=== PATIENT | male | born 1975 | race Caucasian/White ===

== ENCOUNTER 2016-12-02 10:51 | Emergency (ER) | payer OTHER ==
--- NOTE | 2016-12-02 12:37 | DIAGNOSTIC IMAGING REPORT ---
PROCEDURE: XR SINUSES LESS THAN 3 VIEWS INDICATION: History of metal BB from previous injury. Recent injury. TECHNIQUE: Single pizano view. COMPARISON: None. FINDINGS: There is a 4 mm metal BB overlying the upper inner quadrant of the right orbit. The rest of the orbits are normal. Paranasal sinuses are clear. IMPRESSION: 1. There is a 4 mm metal BB overlying the upper inner right orbit (reportedly from old injury). 2. Otherwise negative Pizano view of the orbits. 3. Findings discussed with Dr. Catarino Cox.
--- NOTE | 2016-12-02 13:08 | DIAGNOSTIC IMAGING REPORT ---
PROCEDURE: CT SINUS/FACIAL BONES W/CONT CLINICAL INDICATION: ORBITAL PAIN TECHNIQUE: 125 ml of Isovue 300 injected intravenously and axial images were obtained through the face with coronal reformations. COMPARISON: None. FINDINGS: 6 mm subcutaneous metallic BB anteromedial aspect of the left orbit (apparently injury from 25 years ago). There is minor right periorbital soft tissue swelling but no evidence of an abscess. The globes and postseptal orbits are unremarkable. Minor right maxillary sinus mucosal thickening. No fracture. Left TMJ osteoarthritic changes. IMPRESSION: 1. Mild periorbital soft tissue swelling but no evidence of an abscess 2. 6 mm subcutaneous fat BB in the anteromedial aspect of the preseptal left orbit. No evidence of an additional foreign body. 3. Results discussed with Dr. Cox All CT scans at this facility use dose modulation, iterative reconstruction, and/or weight-based dosing when appropriate to reduce radiation dose to as low as reasonably achievable.
--- NOTE | 2016-12-02 13:33 | ED CLINICAL REPORT ---
Clinical Report - Physicians/Mid Levels Formerly [facility] [address] [place] [address] 12/02/2016 10:54 Patient: MOIZ HOGAN Time Seen: 11:30 Dec 02 2016. Arrived- By private vehicle. Historian- patient. CPT: ER phys charges level 4 (#[id number]). HISTORY OF PRESENT ILLNESS Chief Complaint: EYE REDNESS. This started about 1 weeks [employer] SAL[employer], involves the right eye and is characterized as moderate in severity. Onset. (1 week). ( Pt states he had FB in rt eye last . went to clinic Sat and started on eye drops. states eye is not better and is worse. wonders if he still has FB present. The patient has foreign material in the eye. Eye pain, discomfort and discharge. Moderate right eyelid swelling. No decreased vision. REVIEW OF SYSTEMS No fever, sore throat or cough. All systems otherwise negative, except as recorded above. PAST HISTORY : ( rt eye surg, retina re-attached, lens replaced). SOCIAL HISTORY Heavy tobacco smoker (cigarette)- 1 pack per day. Regular alcohol use. History of drug use: marijuana. ADDITIONAL NOTES The nursing notes have been reviewed. PHYSICAL EXAM Vital Signs: 12/02/2016 11:00 BP: 172/100. HR: 93. RR: 18. O2 saturation: 100%. Temp: 98.2 F. Pain level now: 5/10. Appearance: Alert. HEENT: Ears normal. Nose normal. Pharynx normal. Eyes: Visual acuity noted- see nurse's notes. Right cornea examined with fluorescein stain. Pupils equal, round and reactive to light. Accommodation normal. Periorbital areas appear normal to inspection. Anterior chambers clear. Anterior chambers of normal depth. Rt Eye: Eyelid erythema. Moderate conjunctival edema. Injected conjunctiva. Slight exudate present. Other corneal abnormality (Abnormality seen at 7 o'clock. Unclear if it is an old or new injury. There is cobblestone appearance to the lower corcnea.). No fluorescein dye uptake. Skin: No rash. Neuro: Oriented X 3. LABS, X-RAYS, AND EKG Note - Tests: (CT facial bones : pre-septal edema. No FB.). PROGRESS AND PROCEDURES Course of Care: There is tenderness when sweeping the conjunctiva with swab. The tenderness appears to be in the area of the medial canthus. Do not see any FB on exam and CT does not reveal any FB. Pt will see ophthamology today to evaluate eye condition. Discussed case with on-call health care provider, (Kalyan Crocker). Reviewed test results. Agreed upon treatment plan. Health care provider will see patient in office. Patient/family counseled. Disposition: Transferred. Ophthamology office. Discharged. Condition: stable and unchanged. CLINICAL IMPRESSION Acute orbital cellulitis right eye. FB right eye Corneal injury vs old injury right eye. INSTRUCTIONS Warnings: Further evaluation is necessary. Your Current Medications: CONTINUE TAKING THE FOLLOWING MEDICATIONS: Ibuprofen Oral : 400 mg PRN. None*. Tobramycin Ophthalmic : Solution 0.3 %, 2 drops QID. Prescription Medications: Augmentin 875 mg: take 1 tablet orally every 12 hours for 7 days. Dispense fourteen (14). No refills. Substitution is permissible. Understanding of the discharge instructions verbalized by patient. Follow-up with: Kalyan Al MD, Ophthalmology, , [facility], [address] [place] [address] Follow up today. Reason for referral: eye injury. (Electronically signed by Catarino Cox MD 12/03/2016 8:44)
--- NOTE | 2016-12-02 13:33 | ED CLINICAL REPORT ---
Clinical Report - Physicians/Mid Levels [facility] [address] [place] [address] 12/02/2016 10:54 Patient: MOIZ HOGAN Time Seen: 11:30 Dec 02 2016. Arrived- By private vehicle. Historian- patient. CPT: ER phys charges level 4 (#[id number]). HISTORY OF PRESENT ILLNESS Chief Complaint: EYE REDNESS. 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 Onset. (1 week). ( Pt states he had FB in rt eye last . went to clinic Sat and started on eye drops. states eye is not better and is worse. wonders if he still has FB present. The patient has foreign material in the eye. Eye pain, discomfort and discharge. Moderate right eyelid swelling. No decreased vision. REVIEW OF SYSTEMS No fever, sore throat or cough. All systems otherwise negative, except as recorded above. PAST HISTORY : ( rt eye surg, retina re-attached, lens replaced). SOCIAL HISTORY Heavy tobacco smoker (cigarette)- 1 pack per day. Regular alcohol use. History of drug use: marijuana. ADDITIONAL NOTES The nursing notes have been reviewed. PHYSICAL EXAM Vital Signs: 12/02/2016 11:00 BP: 172/100. HR: 93. RR: 18. O2 saturation: 100%. Temp: 98.2 F. Pain level now: 5/10. Appearance: Alert. HEENT: Ears normal. Nose normal. Pharynx normal. Eyes: Visual acuity noted- see nurse's notes. Right cornea examined with fluorescein stain. Pupils equal, round and reactive to light. Accommodation normal. Periorbital areas appear normal to inspection. Anterior chambers clear. Anterior chambers of normal depth. Rt Eye: Eyelid erythema. Moderate conjunctival edema. Injected conjunctiva. Slight exudate present. Other corneal abnormality (Abnormality seen at 7 o'clock. Unclear if it is an old or new injury. There is cobblestone appearance to the lower corcnea.). No fluorescein dye uptake. Skin: No rash. Neuro: Oriented X 3. LABS, X-RAYS, AND EKG Note - Tests: (CT facial bones : pre-septal edema. No FB.). PROGRESS AND PROCEDURES Course of Care: There is tenderness when sweeping the conjunctiva with swab. The tenderness appears to be in the area of the medial canthus. Do not see any FB on exam and CT does not reveal any FB. Pt will see ophthamology today to evaluate eye condition. Discussed case with on-call health care provider, (Kalyan Crocker). Reviewed test results. Agreed upon treatment plan. Health care provider will see patient in office. Patient/family counseled. Disposition: Transferred. Ophthamology office. Discharged. Condition: stable and unchanged. CLINICAL IMPRESSION Acute orbital cellulitis right eye. FB right eye Corneal injury vs old injury right eye. INSTRUCTIONS Warnings: Further evaluation is necessary. Your Current Medications: CONTINUE TAKING THE FOLLOWING MEDICATIONS: Ibuprofen Oral : 400 mg PRN. None*. Tobramycin Ophthalmic : Solution 0.3 %, 2 drops QID. Prescription Medications: Augmentin 875 mg: take 1 tablet orally every 12 hours for 7 days. Dispense fourteen (14). No refills. Substitution is permissible. Understanding of the discharge instructions verbalized by patient. Follow-up with: Kalyan Al MD, Ophthalmology, , [facility], [address] [place] [address] Follow up today. Reason for referral: eye injury. (Electronically signed by Catarino Cox MD 12/03/2016 8:44)
--- NOTE | 2016-12-02 13:33 | ED NURSING NOTES ---
Clinical Report - Nurses [facility] [address] [place] [address] 12/02/2016 10:54 Patient: MOIZ HOGAN TRIAGE Triage time 1100. Acuity: LEVEL 4. Chief Complaint: REDNESS, PAIN and VISION PROBLEM TO RIGHT EYE. 11:00. --11:08 Kiersten Jeter R.N. 11:00 12/02/16. BP: 172/100. HR: 93. RR: 18. O2 saturation: 100%. Temp: 98.2 F. Pain level now: 10/13. --11:08 Kiersten Jeter R.N. VISUAL ACUITY: Visual acuity performed without corrective lenses: left eye 20/30 minus two letters; right eye 20/70. Patient normally wears corrective lenses. --11:16 Kiersten Jeter R.N. Weight: 93.8 kg stated. Height/Length: 73 inches Per Patient. BMI: 27.3. --11:03 Kiersten Jeter R.N. Medications None. Tobramycin Ophthalmic (Solution 0.3 %) 2 drops, QID. --11:06 Kiersten Jeter R.N. Ibuprofen Oral 400 mg, PRN. --11:06 Kiersten Jeter R.N. Allergies No Known Drug Allergy. --11:05 Kiersten Jeter R.N. History Arrived by private vehicle. Historian: patient. Accompanied by spouse. Primary physician (macrina parrish [facility]). Onset. (1 week). ( Pt states he had FB in rt eye last . went to clinic Sat and started on eye drops. states eyeis not better and is worse. wonders if he still has FB present. Also states he can't hear out of rt ear now). He has had eye discomfort, eye irritation, photophobia and blurred vision. ( also having problems with urination). PAST MEDICAL HX: Negative. SURGERY HX: ( rt eye surg, retina re-attached, lens replaced). SOCIAL HX: Heavy tobacco smoker (cigarette)- 1 pack per day. Occasional alcohol use. History of occasional drug use: marijuana. --11:08 Kiersten Jeter R.N. Interventions ID band on patient. To treatment room. --11:08 Kiersten Jeter R.N. PHYSICAL ASSESSMENT 11:00. Ambulatory to room. GENERAL / NEURO / PSYCH: Alert. Appears anxious. HEENT: Photophobia present. ( redness and local soft tissue swelling noted). RESPIRATORY: Respirations not labored. CVS: Capillary refill less than 2 seconds. SKIN: Skin is warm and dry. --11:10 Kiersten Jeter R.N. NURSING PROGRESS NOTES 11:00. Patient gowned. Head of bed elevated. Reassurance given. Patient identifiers checked. Call light placed in reach. Side rails up. Bed placed in lowest position. Patient ready for evaluation- chart flagged. --11:09 Kiersten Jeter R.N. 11:12 12/02/2016 Alcaine (Proparacaine HCl) Eye Drops Opthalmic solution 2 drop given. Given in the right eye. (for [facility] test). --11:17 Kiersten Jeter R.N. 12:41 12/02/2016 Site #1 started via IV in the right antecubital space with an 20g angiocath, with aseptic technique and good blood return; one attempt. Saline lock flushed with 10 mL saline (Inserted by [facility] for procedure). --12:51 Tg Mayes R.N. late entry -11:45. FB REMOVAL - EYE: Removal of foreign body to the eye performed by ED physician. Preparation: eye tray, slit lamp and fluorescein at bedside. Procedure. (attempted with jordyn). --13:02 Kiersten Jeter R.N. 12:30. Patient transported to CT by wheelchair with tech. --12:56 Kiersten Jeter R.N. 12:50. Patient returned from CT by wheelchair with tech. --12:57 Kiersten Jeter R.N. 13:00 12/02/16. BP: 154/92. HR: 86. RR: 18. O2 saturation: 100%. Temp: deferred. Pain level now: 2/10. Additional comments: given po fluids, wating for CT results . --13:03 Kiersten Jeter R.N. 11:30 12/02/2016 FUL-JR Opth soln Opthalmic solution 1 Strip given. Given in the right eye. (used by JENNIFER). --13:03 Kiersten Jeter R.N. 13:35 12/02/2016 Site #[address] place (IV site left intact per ERMD, and pt to go immediately to [facility]). --18:49 Kiersten Jeter R.N. 18:51 12/02/2016 IV Saline Lock Drip IV Continued: upon transfer at the rate of 0 mL/hr. 0 mL remaining (left in place per ERMD, pt to go immediatly to [facility]). --18:51 Kiersten Jeter R.N. DISPOSITION / DISCHARGE 13:35. Condition at departure: stable. No learning barriers present. Discharge instructions provided and reviewed with the patient. Patient verbalized understanding. Written instructions provided in Indonesian. The patient was discharged (go directly to [facility]). He left the Emergency Department ambulatory and via private vehicle. --18:48 Kiersten Jeter R.N. 13:35 12/02/16. BP: 149/93. HR: 86. RR: 14. O2 saturation: 99%. Temp: deferred. Pain level now: 3/10. --18:48 Kiersten Jeter R.N. Locked/Released at 12/02/2016 18:52 by Kiersten Jeter R.N.
--- NOTE | 2016-12-02 13:33 | ED ORDER SUMMARY ---
..... Patient: MOIZ HOGAN OrderSheet [facility] VisitID: [id number] [place] [address] 41y, M Registration Date/Time: 12/02/2016 ORDER SHEET Weight: 93.8 kg (stated) Allergies: No Known Drug Allergy GENERAL ORDERS: Orbits Urgent (11:45 12/02/2016 Clint RENDON) (Ack 11:48 KHoerner) (Cancelled: Other11:52 Clint RENDON) Sinuses less than 3V (caban) Urgent (11:52 12/02/2016 Clint RENDON) (Ack 11:53 KHoerner) (12:40 KHoerner) CT Sinus/Facial Bones w Cont Urgent (12:17 12/02/2016 Clint RENDON) (Ack 12:20 KHoerner) (12:40 KHoerner) MEDICATION ORDERS: Ful-Olga Eye Strips 1 strips (NOW) (11:16 12/02/2016 DDean R.N. per protocol) (Ack 11:17 DDean R.N.) (13:03 DDean R.N.) Alcaine Eye Drops (Solution 0.5 %) 2 drops (NOW, right eye) (11:16 12/02/2016 DDean R.N. per protocol) (11:17 DDean R.N.) IV FLUIDS: IV Saline Lock (12:50 12/02/2016 TJayne R.N. per protocol) (12:51 TJayne R.N.) ORDER SHEET NOTES: [Electronically signed by Kiersten Jeter R.N. (18:52 12/02/2016)] [Electronically signed by Catarino Cox MD (08:44 12/03/2016)] [Electronically locked/signed by Kiersten Jeter R.N. (18:52 12/02/2016)]
--- NOTE | 2016-12-02 13:33 | ED ORDER SUMMARY ---
..... Patient: MOIZ HOGAN OrderSheet [facility] VisitID: [id number] [place] [address] 41y, M Registration Date/Time: 12/02/2016 ORDER SHEET Weight: 93.8 kg (stated) Allergies: No Known Drug Allergy GENERAL ORDERS: Orbits Urgent (11:45 12/02/2016 Clint RENDON) (Ack 11:48 KHoerner) (Cancelled: Other11:52 Clint RENDON) Sinuses less than 3V (caban) Urgent (11:52 12/02/2016 Clint RENDON) (Ack 11:53 KHoerner) (12:40 KHoerner) CT Sinus/Facial Bones w Cont Urgent (12:17 12/02/2016 Clint RENDON) (Ack 12:20 KHoerner) (12:40 KHoerner) MEDICATION ORDERS: Ful-Olga Eye Strips 1 strips (NOW) (11:16 12/02/2016 DDean R.N. per protocol) (Ack 11:17 DDean R.N.) (13:03 DDean R.N.) Alcaine Eye Drops (Solution 0.5 %) 2 drops (NOW, right eye) (11:16 12/02/2016 DDean R.N. per protocol) (11:17 DDean R.N.) IV FLUIDS: IV Saline Lock (12:50 12/02/2016 TJayne R.N. per protocol) (12:51 TJayne R.N.) ORDER SHEET NOTES: [Electronically signed by Kiersten Jeter R.N. (18:52 12/02/2016)] [Electronically signed by Catarino Cox MD (08:44 12/03/2016)] [Electronically locked/signed by Kiersten Jeter R.N. (18:52 12/02/2016)]
--- NOTE | 2016-12-02 13:33 | ED NURSING NOTES ---
Clinical Report - Nurses [facility] [address] [place] [address] 12/02/2016 10:54 Patient: MOIZ HOGAN TRIAGE Triage time 1100. Acuity: LEVEL 4. Chief Complaint: REDNESS, PAIN and VISION PROBLEM TO RIGHT EYE. 11:00. --11:08 Kiersten Jeter R.N. 11:00 12/02/16. BP: 172/100. HR: 93. RR: 18. O2 saturation: 100%. Temp: 98.2 F. Pain level now: 10/13. --11:08 Kiersten Jeter R.N. VISUAL ACUITY: Visual acuity performed without corrective lenses: left eye 20/30 minus two letters; right eye 20/70. Patient normally wears corrective lenses. --11:16 Kiersten Jeter R.N. Weight: 93.8 kg stated. Height/Length: 73 inches Per Patient. BMI: 27.3. --11:03 Kiersten Jeter R.N. Medications None. Tobramycin Ophthalmic (Solution 0.3 %) 2 drops, QID. --11:06 Kiersten Jeter R.N. Ibuprofen Oral 400 mg, PRN. --11:06 Kiersten Jeter R.N. Allergies No Known Drug Allergy. --11:05 Kiersten Jeter R.N. History Arrived by private vehicle. Historian: patient. Accompanied by spouse. Primary physician (macrina parrish [facility]). Onset. (1 week). ( Pt states he had FB in rt eye last . went to clinic Sat and started on eye drops. states eyeis not better and is worse. wonders if he still has FB present. Also states he can't hear out of rt ear now). He has had eye discomfort, eye irritation, photophobia and blurred vision. ( also having problems with urination). PAST MEDICAL HX: Negative. SURGERY HX: ( rt eye surg, retina re-attached, lens replaced). SOCIAL HX: Heavy tobacco smoker (cigarette)- 1 pack per day. Occasional alcohol use. History of occasional drug use: marijuana. --11:08 Kiersten Jeter R.N. Interventions ID band on patient. To treatment room. --11:08 Kiersten Jeter R.N. PHYSICAL ASSESSMENT 11:00. Ambulatory to room. GENERAL / NEURO / PSYCH: Alert. Appears anxious. HEENT: Photophobia present. ( redness and local soft tissue swelling noted). RESPIRATORY: Respirations not labored. CVS: Capillary refill less than 2 seconds. SKIN: Skin is warm and dry. --11:10 Kiersten Jeter R.N. NURSING PROGRESS NOTES 11:00. Patient gowned. Head of bed elevated. Reassurance given. Patient identifiers checked. Call light placed in reach. Side rails up. Bed placed in lowest position. Patient ready for evaluation- chart flagged. --11:09 Kiersten Jeter R.N. 11:12 12/02/2016 Alcaine (Proparacaine HCl) Eye Drops Opthalmic solution 2 drop given. Given in the right eye. (for [facility] test). --11:17 Kiersten Jeter R.N. 12:41 12/02/2016 Site #1 started via IV in the right antecubital space with an 20g angiocath, with aseptic technique and good blood return; one attempt. Saline lock flushed with 10 mL saline (Inserted by [facility] for procedure). --12:51 Tg Mayes R.N. late entry -11:45. FB REMOVAL - EYE: Removal of foreign body to the eye performed by ED physician. Preparation: eye tray, slit lamp and fluorescein at bedside. Procedure. (attempted with jordyn). --13:02 Kiersten Jeter R.N. 12:30. Patient transported to CT by wheelchair with tech. --12:56 Kiersten Jeter R.N. 12:50. Patient returned from CT by wheelchair with tech. --12:57 Kiersten Jeter R.N. 13:00 12/02/16. BP: 154/92. HR: 86. RR: 18. O2 saturation: 100%. Temp: deferred. Pain level now: 2/10. Additional comments: given po fluids, wating for CT results . --13:03 Kiersten Jeter R.N. 11:30 12/02/2016 FUL-JR Opth soln Opthalmic solution 1 Strip given. Given in the right eye. (used by JENNIFER). --13:03 Kiersten Jeter R.N. 13:35 12/02/2016 Site #[address] place (IV site left intact per ERMD, and pt to go immediately to [facility]). --18:49 Kiersten Jeter R.N. 18:51 12/02/2016 IV Saline Lock Drip IV Continued: upon transfer at the rate of 0 mL/hr. 0 mL remaining (left in place per ERMD, pt to go immediat[facility] to [facility]). --18:51 Kiersten Jeter R.N. DISPOSITION / DISCHARGE 13:35. Condition at departure: stable. No learning barriers present. Discharge instructions provided and reviewed with the patient. Patient verbalized understanding. Written instructions provided in Maltese. The patient was discharged (go directly to [facility] He left the Emergency Department ambulatory and via private vehicle. --18:48 Kiersten Jeter R.N. 13:35 12/02/16. BP: 149/93. HR: 86. RR: 14. O2 saturation: 99%. Temp: deferred. Pain level now: 3/10. --18:48 Kiersten Jeter R.N. Locked/Released at 12/02/2016 18:52 by Kiersten Jeter R.N.
--- NOTE | 2016-12-03 08:44 | ED MED RECONCILIATION SUMMARY ---
Patient: MOIZ HOGAN Medication Reconciliation Report [facility] VisitID: [id number] [place] [address] 41y, M Registration Date/Time: 12/02/2016 Weight: 93.8 kg Height/Length: 73 in. BMI: 27.3 ALLERGIES: No Known Drug Allergy The patient's Home Medications are listed below: CONTINUE TAKING THE FOLLOWING MEDICATIONS: Ibuprofen Oral 400 mg, PRN Tobramycin Ophthalmic (0.3 %) 2 drops, QID The source(s) of the original Home Medication information: Not obtained. The following Medications were given to the patient in the Emergency Department: Alcaine [Eye Drops] Eye Drops 2 drop, administered: 12/02/2016 11:12:00 AM FUL-JR [EYE STRIPS] Opth soln 1 Strip, administered: 12/02/2016 11:30:00 AM The following Medications were prescribed to the patient: Augmentin 875 mg: take 1 tablet orally every 12 hours for 7 days. Dispense fourteen (14). No refills. Substitution is permissible. -- Catarino Cox MD
--- NOTE | 2016-12-03 08:44 | ED MED RECONCILIATION SUMMARY ---
Patient: MOIZ HOGAN Medication Reconciliation Report [facility] VisitID: [id number] [place] [address] 41y, M Registration Date/Time: 12/02/2016 Weight: 93.8 kg Height/Length: 73 in. BMI: 27.3 ALLERGIES: No Known Drug Allergy The patient's Home Medications are listed below: CONTINUE TAKING THE FOLLOWING MEDICATIONS: Ibuprofen Oral 400 mg, PRN Tobramycin Ophthalmic (0.3 %) 2 drops, QID The source(s) of the original Home Medication information: Not obtained. The following Medications were given to the patient in the Emergency Department: Alcaine [Eye Drops] Eye Drops 2 drop, administered: 12/02/2016 11:12:00 AM FUL-JR [EYE STRIPS] Opth soln 1 Strip, administered: 12/02/2016 11:30:00 AM The following Medications were prescribed to the patient: Augmentin 875 mg: take 1 tablet orally every 12 hours for 7 days. Dispense fourteen (14). No refills. Substitution is permissible. -- Catarino Cox MD
--- NOTE | 2016-12-03 08:44 | ED DISCHARGE INSTRUCTIONS ---
Patient: MOIZ HOGAN General Instructions [facility] VisitID: [id number] [place] [address] 41y, M Registration Date/Time: 12/02/2016 Acute orbital cellulitis right eye. FB right eye Corneal injury vs old injury right eye. INSTRUCTIONS Warnings: Further evaluation is necessary. Your Current Medications: CONTINUE TAKING THE FOLLOWING MEDICATIONS: Ibuprofen Oral : 400 mg PRN. None*. Tobramycin Ophthalmic : Solution 0.3 %, 2 drops QID. Prescription Medications: Augmentin 875 mg: take 1 tablet orally every 12 hours for 7 days. Dispense fourteen (14). No refills. Substitution is permissible. Understanding of the discharge instructions verbalized by patient. Follow-up with: Kalyan Al MD, Ophthalmology, , [facility], [address] [place] [address] Follow up today. Reason for referral: eye injury. ADDITIONAL INFORMATION Periorbital Cellulitis This is an infection of the tissues around the eye. It is most often due to an infected scratch or insect bite. Sometimes a sinus infection can cause this problem. Home Care: 1) Take your antibiotic medicine exactly as directed, until it is finished. 2) You may use acetaminophen (Tylenol) or ibuprofen (Motrin, Advil) to control pain, unless another pain medicine was prescribed. [NOTE: If you have liver disease or ever had a stomach ulcer, talk with your doctor before using these medicines.] Do not use ibuprofen in children under six months of age. Follow Up with your doctor or as advised by our staff. Return Promptly or contact your doctor if any of the following occur: -- Increasing swelling around the eye -- Increasing redness -- Fever of 100.5 (38 C) oral or 101.5 (38.6 C) rectal for more than two days on antibiotics You have been given the following additional information: Nubia-Orbital Cellulitis (Electronically signed by Catarino Cox MD 12/03/2016 8:44)
--- NOTE | 2016-12-03 08:44 | ED DISCHARGE INSTRUCTIONS ---
Patient: MOIZ HOGAN General Instructions [facility] VisitID: [id number] [place] [address] 41y, M Registration Date/Time: 12/02/2016 Acute orbital cellulitis right eye. FB right eye Corneal injury vs old injury right eye. INSTRUCTIONS Warnings: Further evaluation is necessary. Your Current Medications: CONTINUE TAKING THE FOLLOWING MEDICATIONS: Ibuprofen Oral : 400 mg PRN. None*. Tobramycin Ophthalmic : Solution 0.3 %, 2 drops QID. Prescription Medications: Augmentin 875 mg: take 1 tablet orally every 12 hours for 7 days. Dispense fourteen (14). No refills. Substitution is permissible. Understanding of the discharge instructions verbalized by patient. Follow-up with: Kalyan Al MD, Ophthalmology, , [facility], [address] [place] [address] Follow up today. Reason for referral: eye injury. ADDITIONAL INFORMATION Periorbital Cellulitis This is an infection of the tissues around the eye. It is most often due to an infected scratch or insect bite. Sometimes a sinus infection can cause this problem. Home Care: 1) Take your antibiotic medicine exactly as directed, until it is finished. 2) You may use acetaminophen (Tylenol) or ibuprofen (Motrin, Advil) to control pain, unless another pain medicine was prescribed. [NOTE: If you have liver disease or ever had a stomach ulcer, talk with your doctor before using these medicines.] Do not use ibuprofen in children under six months of age. Follow Up with your doctor or as advised by our staff. Return Promptly or contact your doctor if any of the following occur: -- Increasing swelling around the eye -- Increasing redness -- Fever of 100.5 (38 C) oral or 101.5 (38.6 C) rectal for more than two days on antibiotics You have been given the following additional information: Nubia-Orbital Cellulitis (Electronically signed by Catarino Cox MD 12/03/2016 8:44)
--- NOTE | 2016-12-03 08:44 | ED MAR SUMMARY ---
..... Medication Administration Record [facility] [address] [place] [place] [address] Patient: MOIZ HOGAN Visit ID: [id number] 41y, M Weight: 93.8 kg Height/Length: 73 in BMI: 27.3 ALLERGIES: No Known Drug Allergy Given 11:12 12/02/2016 Kiersten Jeter R.N. Medication Administered: ALCAINE [EYE DROPS] (PROPARACAINE HCL), Dose: 2 drop Opthalmic solution Eye Drops. Medication Ordered: Alcaine Eye Drops (Solution 0.5 %) 2 drops (NOW, right eye). Given 11:30 12/02/2016 Kiersten Jeter R.N. Medication Administered: FUL-OLGA [EYE STRIPS], Dose: 1 Strip Opthalmic solution Opth soln. Medication Ordered: Ful-Olga Eye Strips 1 strips (NOW).
--- NOTE | 2016-12-03 08:44 | ED MAR SUMMARY ---
..... Medication Administration Record [facility] [address] [place] [address] Patient: MOIZ HOGAN Visit ID: [id number] 41y, M Weight: 93.8 kg Height/Length: 73 in BMI: 27.3 ALLERGIES: No Known Drug Allergy Given 11:12 12/02/2016 Kiersten Jeter R.N. Medication Administered: ALCAINE [EYE DROPS] (PROPARACAINE HCL), Dose: 2 drop Opthalmic solution Eye Drops. Medication Ordered: Alcaine Eye Drops (Solution 0.5 %) 2 drops (NOW, right eye). Given 11:30 12/02/2016 Kiersten Jeter R.N. Medication Administered: FUL-OLGA [EYE STRIPS], Dose: 1 Strip Opthalmic solution Opth soln. Medication Ordered: Ful-Olga Eye Strips 1 strips (NOW).
== END 2016-12-02 13:35 | disposition home or self-care (01) ==
LOC: ED SRH 10:51
DX: T15.91XA Foreign body on external eye, part unspecified, right eye, initial encounter (principal); L03.213 Periorbital cellulitis; F17.210 Nicotine dependence, cigarettes, uncomplicated; X58.XXXA Exposure to other specified factors, initial encounter; Y93.9 Activity, unspecified; Y99.9 Unspecified external cause status; Y92.9 Unspecified place or not applicable